=== PATIENT | male | born 1960 | race Caucasian/White ===

== ENCOUNTER → 2017-07-04 | Outpatient (CLI) | payer BC ==
--- NOTE | 2017-07-04 17:40 | MR ---
EXAMINATION TYPE: MR knee LT wo con DATE OF EXAM: 07/04/2017 COMPARISON: NONE HISTORY: Left Knee pain, x2 months TECHNIQUE: Multiplanar, multisequence imaging of the left knee is performed without IV contrast. FINDINGS: MEDIAL MENISCUS: There is a complex tear involving the posterior horn and body of the medial meniscus . LATERAL MENISCUS: Intrasubstance signal seen within the anterior and posterior horn of the lateral me niscus with no definite articular extension. Myxoid degeneration favored. CRUCIATE LIGAMENTS: The anterior and posterior cruciate ligaments are intact and unremarkable. COLLATERAL LIGAMENTS: The medial collateral ligament and lateral collateral ligament complex are inta ct and unremarkable. EXTENSOR MECHANISM: Visualized quadriceps and patellar tendons are intact. There are tiny less than 1 cm cystic areas along the lateral margin of the femur deep to the patellar retinaculum. May represen t small localized fluid within the space. Ganglion cyst felt less likely. EFFUSION: No significant suprapatellar joint effusion. POPLITEAL CYST: There is a 8 x 10 mm tiny popliteal fossa cyst with some adjacent fluid which may re present small ruptured component of the cyst. TRICOMPARTMENT SPACES: Mild narrowing of the medial compartment of the knee joint. No erosive change. CARTILAGE: There is grade 3 localized chondromalacia involving the medial femoral articular surface. BONE MARROW SIGNAL: There is an area of marrow edema measuring less than 1 cm involving the posterior medial femoral condyle. There is an additional area of marrow edema involving the medial tibial plat eau measuring 2 cm. These are likely related reactive related to the meniscal tear. There is an intraosseous lesion involving the proximal diaphysis of the femur which has mixed signal characteristics and corresponds the x-ray abnormality. Bone infarct favored over chondroid lesion and could be correlated with bone scan. IMPRESSION: 1. Complex tear posterior horn and body medial meniscus. 2. Osteoarthritis with areas of marrow edema or contusion involving the tibial plateau medially and m edial femoral condyle. 3. Intraosseous lesion most typical of bone infarct or chondroid lesion. Bone scan could help to diff erentiate. Bone infarct favored. 4. Probable tiny popliteal fossa cyst as discussed above.
== END | disposition home or self-care (01) ==
LOC: RADMRIMAIN 16:01
PROVIDERS: ATTEND Orthopaedic Surgery
DX: S83.232A Complex tear of medial meniscus, current injury, left knee, initial encounter (principal); M89.9 Disorder of bone, unspecified; M17.12 Unilateral primary osteoarthritis, left knee

== ENCOUNTER → 2017-08-04 | Outpatient (CLI) | payer BC ==
[2017-08-04 13:11] LABS: Potassium 4.7 mmol/L (3.5-5.1)
[2017-08-04 13:28] LABS: Basophils # (A) 0.1 k/uL (0-0.2); Basophils % (A) 2 %; Eosinophils # (A) 0.1 k/uL (0-0.7); Eosinophils % (A) 2 %; HCT 43.8 % (39.0-53.0); HGB 14.9 gm/dL (13.0-17.5); Lymphocytes # (A) 1.3 k/uL (1.0-4.8); Lymphocytes % (A) 31 %; MCH 29.4 pg (25.0-35.0); MCHC 33.9 g/dL (31.0-37.0); MCV 86.7 fL (80.0-100.0); Mean Platelet Volume 7.1; Monocytes # (A) 0.4 k/uL (0-1.0); Monocytes % (A) 10 %; Neutrophils # (A) 2.1 k/uL (1.3-7.7); Neutrophils % (A) 51 %; Platelet Count 326 k/uL (150-450); RBC 5.06 m/uL (4.30-5.90); RDW 12.4 % (11.5-15.5); WBC 4.1 k/uL (3.8-10.6)
== END | disposition home or self-care (01) ==
LOC: LABPAT 12:08 → LABWHC1 12:08
PROVIDERS: ATTEND Orthopaedic Surgery
DX: Z01.818 Encounter for other preprocedural examination (principal); I49.8 Other specified cardiac arrhythmias; M23.92 Unspecified internal derangement of left knee; Z01.812 Encounter for preprocedural laboratory examination
CPT/HCPCS: 36415; 80051; 85025; 93005

== ENCOUNTER 2017-08-19 06:43 | Day surgery (SDC) | payer BC ==
[2017-08-16 13:15] VITALS: BMI 27.2
--- NOTE | 2017-08-18 08:45 | HP ---
HISTORY AND PHYSICAL CHIEF COMPLAINT: Left knee pain. 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 He notes medial pain, stiffness, and swelling. He has intermittent giving way. He has tried anti-inflammatories and rest without much relief. He notes the knee bothers him daily. PAST MEDICAL HISTORY: Negative. PAST SURGICAL HISTORY: Significant for previous lumbar spine surgery. CURRENT MEDICATION: Ibuprofen. ALLERGIES: He denies drug allergies. FAMILY HISTORY: Significant for cancer. SOCIAL HISTORY: Significant for social alcohol use. REVIEW OF SYSTEMS: Sixteen point review of systems otherwise reviewed and is noncontributory. PHYSICAL EXAMINATION: On examination, the patient is approximately 5 feet 10 inches, 190 pounds of mesomorphic habitus. HEENT exam is nonfocal. Neck is supple. He has painless passive motion of his left hip. Straight leg raise is negative. Active motion left knee -8 to 135 degrees of flexion. He has a mild effusion. He is tender about the medial joint line. Collaterals are stable. Camron's negative. Smitha's elicits medial pain. His distal neurovascular exam appears to be intact in the left lower extremity. MRI report for the left knee 07/04/2017 shows a posterior medial meniscal tear along with chondral irregularities of the medial femoral condyle. IMPRESSION: Left knee internal derangement with symptomatic medial meniscal tear and possible medial femoral condyle chondral injury. RECOMMENDATIONS: I talked to the patient at length regarding his treatment options. At this point he is having significant pain and mechanical symptoms that limit him despite conservative measures. After thorough discussion, he opts to proceed with surgery. We will likely perform that as an outpatient procedure. We will likely proceed with arthroscopic evaluation with probable partial medial meniscectomy and possible medial femoral chondrectomy. MMODL / IJN: [id number] / [place]
[~2017-08-19 06:43] MED LIST: DEXAMETHASONE SOD PHOSPHATE 10 MG/ML 1 ML VIAL IV ONE; LACTATED RINGERS 1,000 ML IV SCH; MIDAZOLAM 2 MG/2 ML VIAL IV PRN; ONDANSETRON 4 MG/2 ML VIAL IVP ONE; SCOPOLAMINE 1.5MG/72HR PATCH TRANSDERM ONE; ceFAZolin IN SWFI 2 GM/20 ML SYRINGE IVP ONE; fentaNYL (PF) 50 MCG/ML 2 ML AMP IV PRN
[2017-08-19 07:13] VITALS: TEMP 97.8
[2017-08-19] MEDS ORDERED: MIDAZOLAM 2 MG/2 ML VIAL ONE (08:13)
[2017-08-19] MEDS ORDERED: KETOROLAC 30 MG/ML 1 ML VIAL ONE (08:13)
[2017-08-19] MEDS ORDERED: PROPOFOL 10 MG/ML 20 ML VIAL IV ONE (08:13)
[2017-08-19] MEDS ORDERED: PHENYLEPHRINE-0.9% NACL SYG 1 MG/10 ML SYRINGE ONE (08:13)
[2017-08-19] MEDS ORDERED: LIDOCAINE 1% INJ 10MG/ML (20 ML MDV) ONE (08:13)
[2017-08-19] MEDS ORDERED: fentaNYL (PF) 50 MCG/ML 2 ML AMP ONE (08:13)
[2017-08-19] MEDS ORDERED: EPINEPHrine (PF) 1 ML in SODIUM CHLORIDE 0.9% IRRIGATIO 3,000 ML IRRIGATION ONE ×6 (08:13)
--- NOTE | 2017-08-19 09:04 | P.OP ---
Date of Procedure: 08/19/17 Preoperative Diagnosis: Left knee internal derangement Postoperative Diagnosis: left knee posterior medial meniscal tear/grade 3 chondral injury distal lateral portion medial femoral condyle Procedure(s) Performed: Left knee arthroscopic partial medial meniscectomy/medial femoral chondrectomy/ microfracture medial femoral condyle Anesthesia: VIRGILIOA Surgeon: Shahab Lane Estimated Blood Loss (ml): 10 Pathology: none sent Condition: stable Disposition: PACU Indications for Procedure: The patient is a 57-year-old male who presents with progressive left knee pain and mechanical symptoms despite conservative measures. A discussion of the risks and benefits of continued conservative measures versus operative intervention was made with patient. He opted to proceed with surgery. Operative risks to include infection, neurovascular injury, development of blood clots, possible incomplete resolution of symptoms, possible worsening symptoms and need for subsequent procedures was discussed. Informed consent was obtained. Operative Findings: As below Description of Procedure: The patient was brought to the operating room, and after induction of general anesthesia examined the left knee. Collaterals were stable, Camron was negative, and posterior drawer was negative. The left lower extremity was prepped and draped in normal fashion. A superior lateral portal was made through a 3 mm skin incision superior and lateral to the patella. This was used for outflow. A lateral portal was made through a 5 mm vertical skin incision lateral to the patella tendon above the joint line. Diagnostic arthroscopy was performed. A medial portal was made through a similar incision medial to the patellar tendon above the joint line. On inspection of the medial compartment, a longitudinal tear involving the posterior one third of the medial meniscus in the white-white junction was noted. This debrided back to stable base with straight baskets and a motorized shaver. The edges were contoured. The remaining medial meniscus was stable and intact. A grade 3 chondral injury involving the distal lateral most portion of the medial femoral condyle was noted. There was a loose chondral flap debrided back to stable base with a motorized shaver. Microfracture was performed with an awl. I breeched the subchondral surface. On inspection of the notch, the anterior cruciate ligament appeared to be intact. On inspection of the lateral compartment, no significant meniscal or cartilage pathology was noted. On inspection the patellofemoral articulation, there is chondral fibrillation however no loose chondral fragments. The gutters were clear debris. The knee was then thoroughly irrigated. The portals were closed with Steri-Strips. A sterile dressing was applied in addition to a compression stocking. The patient was awoken from general anesthesia and transferred to recovery room in good condition. Blood loss was estimated at 10 mL. No complications were incurred.
[2017-08-19] MEDS ORDERED: LACTATED RINGERS 1,000 ML IV ONE (09:32)
[2017-08-19 09:46] VITALS: RESP 20
[2017-08-19 10:16] VITALS: BP 140/87; PULSE 73
== END 2017-08-19 10:45 | disposition home or self-care (01) ==
LOC: OR 06:43
PROVIDERS: ATTEND Orthopaedic Surgery
DX: M23.222 Derangement of posterior horn of medial meniscus due to old tear or injury, left knee (principal); M94.8X6 Other specified disorders of cartilage, lower leg; G47.33 Obstructive sleep apnea (adult) (pediatric); M54.9 Dorsalgia, unspecified; Z79.1 Long term (current) use of non-steroidal anti-inflammatories (NSAID)
CPT/HCPCS: 29881; 29879; J2250; J1100; J2405; J0171; J2001; J3010; J1885; J2370; J2704; J0690

== ENCOUNTER → 2018-09-08 | Outpatient (CLI) | payer BC ==
--- NOTE | 2018-09-08 22:08 | MR ---
EXAMINATION TYPE: MR knee RT wo con DATE OF EXAM: 09/08/2018 COMPARISON: HISTORY: Pain in right knee TECHNIQUE: Multiplanar, multisequence images of the knee is performed without IV contrast. FINDINGS: MEDIAL MENISCUS: Radial tear posterior horn medial meniscus. Myxoid degeneration. Anterior horn is in tact. LATERAL MENISCUS: Anterior and posterior horns are intact without tear. CRUCIATE LIGAMENTS: The anterior and posterior cruciate ligaments are intact and unremarkable. COLLATERAL LIGAMENTS: The medial collateral ligament and lateral collateral ligament complex are inta ct and unremarkable. EXTENSOR MECHANISM: Visualized quadriceps and patellar tendons are intact. EFFUSION: Small suprapatellar joint effusion noted. POPLITEAL CYST: No popliteal/ma cyst. TRICOMPARTMENT SPACES: Mild narrowing medial tibiofemoral joint space CARTILAGE: Intact BONE MARROW SIGNAL: No focal abnormal marrow signal is appreciated. OTHER: Soft tissue edema posterior compartment of the knee. IMPRESSION: 1.Radial tear posterior horn medial meniscus. Myxoid degeneration. 2. Joint effusion. 3. Soft tissue edema posterior compartment of the knee.
== END ==
LOC: RADMRIMAIN 19:34
PROVIDERS: ATTEND Orthopaedic Surgery
DX: S83.241A Other tear of medial meniscus, current injury, right knee, initial encounter (principal)

== ENCOUNTER → 2018-09-20 | Outpatient (CLI) | payer BC ==
[2018-09-20 17:27] LABS: Basophils # (A) 0.1 k/uL (0-0.2); Basophils % (A) 1 %; Eosinophils # (A) 0.1 k/uL (0-0.7); Eosinophils % (A) 1 %; HCT 41.2 % (39.0-53.0); HGB 14.2 gm/dL (13.0-17.5); Lymphocytes # (A) 1.4 k/uL (1.0-4.8); Lymphocytes % (A) 24 %; MCH 29.9 pg (25.0-35.0); MCHC 34.4 g/dL (31.0-37.0); MCV 86.7 fL (80.0-100.0); Mean Platelet Volume 7.1; Monocytes # (A) 0.4 k/uL (0-1.0); Monocytes % (A) 7 %; Neutrophils # (A) 3.7 k/uL (1.3-7.7); Neutrophils % (A) 64 %; Platelet Count 322 k/uL (150-450); RBC 4.75 m/uL (4.30-5.90); RDW 13.2 % (11.5-15.5); WBC 5.8 k/uL (3.8-10.6)
[2018-09-20 17:41] LABS: Potassium 4.2 mmol/L (3.5-5.1)
== END ==
LOC: LABPAT 15:57
PROVIDERS: ATTEND Orthopaedic Surgery
DX: Z01.818 Encounter for other preprocedural examination (principal); Z01.812 Encounter for preprocedural laboratory examination; M23.91 Unspecified internal derangement of right knee
CPT/HCPCS: 36415; 80051; 85025; 93005

== ENCOUNTER 2018-10-06 06:49 | Day surgery (SDC) | payer BC ==
[2018-10-03 11:24] VITALS: BMI 25.8
--- NOTE | 2018-10-05 11:13 | HP ---
HISTORY AND PHYSICAL CHIEF COMPLAINT: Right knee pain. 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 He notes posterior and lateral pain along with swelling and locking. It is worse with prolonged weightbearing activities and at night. Currently, he has been taking ibuprofen for this. PAST MEDICAL HISTORY: Significant for arthritis. PAST SURGICAL HISTORY: Significant for previous lumbar spine surgery and left knee arthroscopy. CURRENT MEDICATIONS: Ibuprofen. He denies drug allergies. FAMILY HISTORY: Significant for cancer. SOCIAL HISTORY: Significant for social alcohol use. REVIEW OF SYSTEMS: A 16-point review of systems otherwise reviewed and is noncontributory. PHYSICAL EXAMINATION: The patient is approximately 5 foot 10, 180 pounds of mesomorphic habitus. HEENT exam is nonfocal. Neck is supple. He has painless passive motion of the right hip. Straight leg raise is negative. Active motion right knee -10 to 100 degrees of flexion. He has mild effusion. He is tender about the medial, greater and lateral joint line. Collaterals are stable, Camron is negative, Smitha's elicits medial pain. His distal neurovascular appears to be intact in the right lower extremity. MRI report for the right knee from 09/08/2018 shows a posterior medial meniscal tear along with posterior soft tissue edema and a large effusion. There is some increased signal involving the ACL. IMPRESSION: Right knee internal derangement with symptomatic medial meniscal tear. RECOMMENDATIONS: I talked to the patient at length regarding his condition and treatment options. At this point, he is having significant pain and mechanical symptoms that limit his normal function and activities. After thorough discussion, he opts to proceed with surgery. We will plan to proceed with arthroscopic evaluation for probable partial medial meniscectomy. We will likely perform that as an outpatient procedure. Risks and benefits were discussed at length in layman's terms. MMODL / IJN: [id number] /
[~2018-10-06 06:49] MED LIST changes: +LIDOCAINE 1% 20 ML VIAL (10MG/ML) FOR IV START INTRADERMA PRN; -SCOPOLAMINE 1.5MG/72HR PATCH TRANSDERM ONE; -fentaNYL (PF) 50 MCG/ML 2 ML AMP IV PRN
[2018-10-06] MEDS ORDERED: LIDOCAINE 1% INJ 10MG/ML (20 ML MDV) ONE (07:55)
[2018-10-06] MEDS ORDERED: MIDAZOLAM 2 MG/2 ML VIAL ONE (07:55)
[2018-10-06] MEDS ORDERED: KETOROLAC 30 MG/ML 1 ML VIAL ONE (07:55)
[2018-10-06] MEDS ORDERED: fentaNYL (PF) 50 MCG/ML 2 ML AMP ONE (07:55)
[2018-10-06] MEDS ORDERED: PROPOFOL 10 MG/ML 20 ML VIAL IV ONE (07:55)
[2018-10-06] MEDS ORDERED: SUCCINYLCHOLINE CHLORIDE 100 MG/5 ML SYR IV ONE (07:55)
[2018-10-06] MEDS ORDERED: EPINEPHrine (PF) 1 ML in SODIUM CHLORIDE 0.9% IRRIGATIO 3,000 ML IRRIGATION ONE ×4 (08:02)
[2018-10-06] MEDS ORDERED: LACTATED RINGERS 1,000 ML IV ONE (08:35)
--- NOTE | 2018-10-06 08:55 | P.OP ---
Date of Procedure: 10/06/18 Preoperative Diagnosis: Right knee internal derangement Postoperative Diagnosis: Right knee posterior medial meniscal tear/grade 3 chondral injury distal lateral portion medial femoral condyle Procedure(s) Performed: Right knee arthroscopic partial medial meniscectomy/medial femoral chondrectomy/microfracture medial femoral condyle Anesthesia: VIRGILIOA Surgeon: Shahab Lane Estimated Blood Loss (ml): 10 Pathology: none sent Condition: stable Disposition: PACU Indications for Procedure: The patient's a 58-year-old male who presents with progressive right knee pain and mechanical symptoms despite conservative measures. A discussion of the risks and benefits of operative intervention versus continued conservative measures was made with the patient. He opted proceed with surgery. Operative risks to include infection, neurovascular injury, development of blood clots, possible incomplete resolution of symptoms, possible worsening symptoms and need for subsequent procedures was discussed. Informed consent was obtained. Operative Findings: As below Description of Procedure: The patient was brought to the operating room, and after induction of general anesthesia examined the right knee. Collaterals were stable, Camron was negative, and posterior drawer was negative. The right lower extremity was prepped and draped in a normal fashion. A superior lateral portal was made through a 3 mm skin incision superior and lateral to the patella. This was used for outflow. A lateral portal was made through a 5 mm vertical skin incision lateral to the patella tendon above the joint line. Diagnostic arthroscopy was performed. On inspection of the medial compartment, a complex tear involving the posterior horn of the medial meniscus was noted in the white-red junction. This was debrided back to stable base with straight baskets and a motorized shaver. A corresponding grade 3 chondral injury was noted involving the distal lateral portion of the medial femoral condyle. There was a loose chondral fragment debrided back to stable base with motorized shaver. Microfracture was performed with a chondral breeching the subchondral surface to the bone marrow elements. On inspection of the notch, the anterior cruciate ligament appeared to be intact. On inspection of the lateral compartment no significant meniscal or cartilage pathology was noted. On inspection of the patellofemoral articulation there were grade 2 chondral changes diffusely. The gutters were clear debris. The knee was then thoroughly irrigated. The portals were closed with Steri-Strips. A sterile dressing was applied in addition to a compression stocking. The patient was awoken from general anesthesia and transferred to recovery room in good condition. Blood loss was estimated at 10 mL. No complications were incurred.
[2018-10-06 09:08] VITALS: TEMP 97
[2018-10-06] MEDS: fentaNYL (PF) 50 MCG/ML 2 ML AMP IV PRN ×2 (09:12→09:29)
[2018-10-06 09:17] VITALS: RESP 16
[2018-10-06] MEDS ORDERED: HYDROcodone/APAP 5-325MG 1 EACH TAB PO ONE (10:09)
[2018-10-06 10:42] VITALS: BP 122/78; PULSE 88
== END 2018-10-06 11:11 | disposition home or self-care (01) ==
LOC: OR 06:49
PROVIDERS: ATTEND Orthopaedic Surgery
DX: S83.241A Other tear of medial meniscus, current injury, right knee, initial encounter (principal); S83.31XA Tear of articular cartilage of right knee, current, initial encounter; X58.XXXA Exposure to other specified factors, initial encounter; M19.90 Unspecified osteoarthritis, unspecified site; Z79.1 Long term (current) use of non-steroidal anti-inflammatories (NSAID)
CPT/HCPCS: 29881; 29879; J2250; J2405; J0171; J2001; J3010; J1885; J0330; J2704; J0690

== ENCOUNTER 2021-03-21 14:49 | Emergency (ER) | payer BC ==
[2021-03-21 15:14] VITALS: TEMP 98.3
[2021-03-21] MEDS ORDERED: ONDANSETRON 4 MG/2 ML VIAL IVP STA (16:04)
[2021-03-21] MEDS ORDERED: SODIUM CHLORIDE 0.9% 1,000 ML IV STA (16:04)
[2021-03-21] MEDS ORDERED: HYDROmorphone 0.5 MG/0.5 ML SYRINGE IVP STA ×2 (16:04→17:20)
[2021-03-21] MEDS ORDERED: KETOROLAC 15 MG/ML 1 ML VIAL IVP STA (16:04)
--- NOTE | 2021-03-21 16:07 | ED ---
General Adult HPI - General Chief complaint: Back Pain/Injury Stated complaint: SOB & back pain Time Seen by Provider: 03/21/21 15:56 Source: patient Mode of arrival: ambulatory Limitations: no limitations - History of Present Illness Initial comments: 61-year-old male patient presents to the emergency department today for evaluation of right flank pain. Patient states the pain started approximately an hour ago. States this started in the right flank as a sharp stabbing pain and now has radiated around to his right upper quadrant abdomen. Reports increased pain with deep breathing. Denies nausea or vomiting. Denies any hematuria, dysuria, urinary frequency, urinary urgency. Denies any knowledge of aortic aneurysm. States he has no other medical problems. Is otherwise healthy. Patient denies any recent rash, fever, chills, cough, shortness of breath, chest pain, diarrhea, constipation, numbness, tingling, dizziness, weakness, hematuria, dysuria, urinary urgency, urinary frequency, headache, visual changes, or any other complaints. Denies history of abdominal surgery. - Related Data Home Medications Medication Instructions Recorded Confirmed Ibuprofen 800 mg PO DAILY PRN 08/16/17 10/06/18 Previous Rx's Medication Instructions Recorded Hydrocodone/Acetaminophen [[place] 1 each PO Q6HR PRN #21 tab 10/06/18 5-325] HYDROcodone/APAP 5-325MG [[place] 5] 1 each PO Q6HR PRN #12 tab 03/21/21 Ibuprofen [Motrin] 600 mg PO Q8HR PRN #30 tab 03/21/21 Tamsulosin HCl [Flomax] 0.4 mg PO DAILY #7 cap 03/21/21 Allergies Allergy/AdvReac Type Severity Reaction Status Date / Time No Known Allergies Allergy Verified 03/21/21 15:11 Review of Systems ROS Statement: Those systems with pertinent positive or pertinent negative responses have been documented in the HPI. ROS Other: All systems not noted in ROS Statement are negative. Past Medical History Past Medical History: No Reported History History of Any Multi-Drug Resistant Organisms: None Reported Past Surgical History: Orthopedic Surgery Past Psychological History: No Psychological Hx Reported Smoking Status: Never smoker Past Alcohol Use History: Occasional Past Drug Use History: None Reported General Exam Limitations: no limitations General appearance: alert, in no apparent distress, other (This is a well- developed, well-nourished adult male patient in no acute distress.) Respiratory exam: Present: normal lung sounds bilaterally. Absent: respiratory distress, wheezes, rales, rhonchi, stridor Cardiovascular Exam: Present: regular rate, normal rhythm, normal heart sounds. Absent: systolic murmur, diastolic murmur, rubs, gallop, clicks GI/Abdominal exam: Present: soft, tenderness (Right upper quadrant), normal bowel sounds. Absent: distended, guarding, rebound, rigid Back exam: Present: normal inspection, CVA tenderness (R). Absent: CVA tenderness (L) Neurological exam: Present: alert, oriented X3, CN II-XII intact Psychiatric exam: Present: normal affect, normal mood Skin exam: Present: warm, dry, intact, normal color. Absent: rash Course Vital Signs 03/21/21 03/21/21 15:11 17:18 Temperature 98.3 F Pulse Rate 77 76 Respiratory 20 18 Rate Blood Pressure 147/88 141/87 O2 Sat by Pulse 96 98 Oximetry Medical Decision Making - Medical Decision Making 61-year-old male patient presents to the emergency department today for claritza luation of right flank pain that started suddenly prior to arrival. Physical examination did reveal right CVA tenderness. Right upper quadrant tenderness. Labs reviewed and are unremarkable. Urinalysis unremarkable. CT abdomen and pelvis did reveal mild right-sided hydronephrosis with a small calculus at the right UVJ. I did discuss findings results with him to be discharged home with medications for symptom relief. He is instructed to follow-up with urology if symptoms are not improved over the next 1-2 days. Return parameters were discussed in detail. He verbalizes understanding and agrees with this plan. Case discussed with my attending Dr. Chan. - Lab Data Result diagrams: 03/21/21 16:29 03/21/21 16:29 Lab Results 03/21/21 03/21/21 03/21/21 Range/Units 16:29 16:29 16:29 WBC 8.9 (3.8-10.6) k/uL RBC 5.09 (4.30-5.90) m/uL Hgb 15.5 (13.0-17.5) gm/dL Hct 46.2 (39.0-53.0) % MCV 90.8 (80.0-100.0) fL MCH 30.5 (25.0-35.0) pg MCHC 33.6 (31.0-37.0) g/dL RDW 12.4 (11.5-15.5) % Plt Count 325 (150-450) k/uL MPV 7.1 Neutrophils % 84 % Lymphocytes % 7 % Monocytes % 7 % Eosinophils % 1 % Basophils % 0 % Neutrophils # 7.4 (1.3-7.7) k/uL Lymphocytes # 0.7 L (1.0-4.8) k/uL Monocytes # 0.6 (0-1.0) k/uL Eosinophils # 0.0 (0-0.7) k/uL Basophils # 0.0 (0-0.2) k/uL Sodium 137 (137-145) mmol/L Potassium 4.5 (3.5-5.1) mmol/L Chloride 99 (98-107) mmol/L Carbon Dioxide 27 (22-30) mmol/L Anion Gap 11 mmol/L BUN 16 (9-20) mg/dL Creatinine 0.96 (0.66-1.25) mg/dL Est GFR (CKD-EPI)AfAm >90 (>60 ml/min/1.73 sqM) Est GFR (CKD-EPI)NonAf 86 (>60 ml/min/1.73 sqM) Glucose 144 H (74-99) mg/dL Plasma Lactic Acid Js 1.8 (0.7-2.0) mmol/L Calcium 9.8 (8.4-10.2) mg/dL Total Bilirubin 0.9 (0.2-1.3) mg/dL AST 20 (17-59) U/L ALT 22 (4-49) U/L Alkaline Phosphatase 55 (38-126) U/L Total Protein 8.2 (6.3-8.2) g/dL Albumin 4.7 (3.5-5.0) g/dL Lipase 112 (23-300) U/L Urine Color Urine Appearance (Clear) Urine pH (5.0-8.0) Ur Specific Otho (1.001-1.035) Urine Protein (Negative) Urine Glucose (UA) (Negative) Urine Ketones (Negative) Urine Blood (Negative) Urine Nitrite (Negative) Urine Bilirubin (Negative) Urine Urobilinogen (<2.0) mg/dL Ur Leukocyte Esterase (Negative) Urine RBC (0-5) /hpf Urine WBC (0-5) /hpf Amorphous Sediment (None) /hpf Urine Mucus (None) /hpf 03/21/21 Range/Units 17:13 WBC (3.8-10.6) k/uL RBC (4.30-5.90) m/uL Hgb (13.0-17.5) gm/dL Hct (39.0-53.0) % MCV (80.0-100.0) fL MCH (25.0-35.0) pg MCHC (31.0-37.0) g/dL RDW (11.5-15.5) % Plt Count (150-450) k/uL MPV Neutrophils % % Lymphocytes % % Monocytes % % Eosinophils % % Basophils % % Neutrophils # (1.3-7.7) k/uL Lymphocytes # (1.0-4.8) k/uL Monocytes # (0-1.0) k/uL Eosinophils # (0-0.7) k/uL Basophils # (0-0.2) k/uL Sodium (137-145) mmol/L Potassium (3.5-5.1) mmol/L Chloride (98-107) mmol/L Carbon Dioxide (22-30) mmol/L Anion Gap mmol/L BUN (9-20) mg/dL Creatinine (0.66-1.25) mg/dL Est GFR (CKD-EPI)AfAm (>60 ml/min/1.73 sqM) Est GFR (CKD-EPI)NonAf (>60 ml/min/1.73 sqM) Glucose (74-99) mg/dL Plasma Lactic Acid Js (0.7-2.0) mmol/L Calcium (8.4-10.2) mg/dL Total Bilirubin (0.2-1.3) mg/dL AST (17-59) U/L ALT (4-49) U/L Alkaline Phosphatase (38-126) U/L Total Protein (6.3-8.2) g/dL Albumin (3.5-5.0) g/dL Lipase (23-300) U/L Urine Color Yellow Urine Appearance Turbid (Clear) Urine pH 7.0 (5.0-8.0) Ur Specific Otho 1.022 (1.001-1.035) Urine Protein Negative (Negative) Urine Glucose (UA) Negative (Negative) Urine Ketones Negative (Negative) Urine Blood Negative (Negative) Urine Nitrite Negative (Negative) Urine Bilirubin Negative (Negative) Urine Urobilinogen <2.0 (<2.0) mg/dL Ur Leukocyte Esterase Negative (Negative) Urine RBC <1 (0-5) /hpf Urine WBC 4 (0-5) /hpf Amorphous Sediment Many H (None) /hpf Urine Mucus Rare H (None) /hpf - Radiology Data Radiology results: report reviewed, image reviewed CT abdomen and pelvis without contrast was obtained. Report is reviewed in its entirety. Impression by Dr. Morrell shows mild shortly calculus at the right ureterovesical junction. Mild right-sided hydronephrosis and hydroureter. Disposition Clinical Impression: Kidney stone Disposition: HOME SELF-CARE Condition: Good Instructions (If sedation given, give patient instructions): Kidney Stones (ED) Additional Instructions: Take medications as directed. Increase fluids. Follow-up with urologist for further evaluation as soon as possible. Return for any new, worsening, or concerning symptoms. Prescriptions: Tamsulosin HCl [Flomax] 0.4 mg PO DAILY #7 cap Ibuprofen [Motrin] 600 mg PO Q8HR PRN #30 tab PRN Reason: Pain HYDROcodone/APAP 5-325MG [[place] 5] 1 each PO Q6HR PRN #12 tab PRN Reason: Pain Is patient prescribed a controlled substance at d/c from ED?: No Referrals: Wei Echols MD [Primary Care Provider] - 1-2 days Thomas Pritchett MD [STAFF PHYSICIAN] - 1-2 days Time of Disposition: 17:53
[2021-03-21 16:34] LABS: Basophils % (A) 0 %; Eosinophils % (A) 1 %; HCT 46.2 % (39.0-53.0); HGB 15.5 gm/dL (13.0-17.5); Lymphocytes # (A) 0.7 k/uL (1.0-4.8); Lymphocytes % (A) 7 %; MCH 30.5 pg (25.0-35.0); MCHC 33.6 g/dL (31.0-37.0); MCV 90.8 fL (80.0-100.0); Mean Platelet Volume 7.1; Monocytes # (A) 0.6 k/uL (0-1.0); Monocytes % (A) 7 %; Neutrophils # (A) 7.4 k/uL (1.3-7.7); Neutrophils % (A) 84 %; Platelet Count 325 k/uL (150-450); RBC 5.09 m/uL (4.30-5.90); RDW 12.4 % (11.5-15.5); WBC 8.9 k/uL (3.8-10.6)
[2021-03-21 16:53] LABS: Chloride 99 mmol/L (98-107)
[2021-03-21 16:56] LABS: ALT 22 U/L (4-49); AST 20 U/L (17-59); African American GFR (CKD) >90 (>60 ml/min/1.73 sqM); Albumin 4.7 g/dL (3.5-5.0); Alkaline Phosphatase 55 U/L (38-126); Anion Gap 11 mmol/L; Blood Urea Nitrogen 16 mg/dL (9-20); Calcium 9.8 mg/dL (8.4-10.2); Carbon Dioxide 27 mmol/L (22-30); Glucose 144 mg/dL (74-99); Lipase 112 U/L (23-300); Non-African American GFR(CKD) 86 (>60 ml/min/1.73 sqM); Potassium 4.5 mmol/L (3.5-5.1); Sodium 137 mmol/L (137-145); Total Bilirubin 0.9 mg/dL (0.2-1.3); Total Protein 8.2 g/dL (6.3-8.2)
--- NOTE | 2021-03-21 17:02 | CT ---
EXAMINATION TYPE: CT abdomen pelvis wo con DATE OF EXAM: 03/21/2021 COMPARISON: None HISTORY: right flank pain CT DLP: 485.7 mGycm Automated exposure control for dose reduction was used. Images obtained from the diaphragm to the floor the pelvis without contrast. Lung bases are clear of infiltrate. There is no pleural effusion. Heart size is fairly normal. There is no pericardial effusion. Liver spleen stomach pancreas gallbladder appear intact. Bile ducts are not dilated. There is no adrenal mass. Kidneys have normal size. There is right-sided hydronephrosis and hydrouret er. There is 4 mm calculus at the right ureterovesical junction. There is mild right-sided perinephri c edema. There is no retroperitoneal adenopathy. There is no mesenteric edema. There is no ascites or free air. There is no bowel obstruction. Appendi x not seen. Lumbar vertebra have normal alignment. There is degenerative disc space narrowing at L4-5 and L5-S1. There is vacuum disc. There is spur formation. Facet joints are intact. The bony pelvis appears intac t. Hip joints are intact. IMPRESSION: Small obstructing calculus at the right ureterovesical junction. Mild right-sided hydronephrosis and hydroureter.
[2021-03-21 17:20] VITALS: RESP 18
[2021-03-21 17:31] LABS: Amorphous Sediment,Urine Many /hpf; Appearance,Urine Turbid (Clear); Bilirubin,Urine Negative (Negative); Blood,Urine Negative (Negative); Color,Urine Yellow; Glucose,Urine (UA) Negative (Negative); Ketones,Urine Negative (Negative); Leukocyte Esterase,Urine Negative (Negative); Mucus,Urine Rare /hpf; Nitrite,Urine Negative (Negative); Protein,Urine Negative (Negative); RBC,Urine <1 /hpf (0-5); Specific Gravity,Urine 1.022 (1.001-1.035); Urobilinogen,Urine <2.0 mg/dL (<2.0); WBC,Urine 4 /hpf (0-5)
[2021-03-21] MEDS ORDERED: TAMSULOSIN 0.4 MG CAP.ER.24H PO STA (17:50)
[2021-03-21 18:06] VITALS: BP 155/80; PULSE 107
== END 2021-03-21 18:06 | disposition home or self-care (01) ==
LOC: EC 14:49
DX: N20.0 Calculus of kidney (principal)
CPT/HCPCS: 99284; 96374; 96375 ×2; 96376; 96361; 36415; 80053; 83605; 83690; 85025; 81001; 74176; J2405; J1885; J1170

== ENCOUNTER → 2021-10-26 | Outpatient (CLI) | payer BC ==
--- NOTE | 2021-10-27 01:04 | CT ---
EXAMINATION TYPE: CT lumbar spine wo con DATE OF EXAM: 10/26/2021 5:52 PM COMPARISON: CT dated 03/21/2021 HISTORY: low back pain. Hx of [address] DLP: 944 mGycm Automated exposure control for dose reduction was used. Technique: Unenhanced CT of the lumbar spine was performed. Bone and soft tissue window settings are submitted as well as coronal and sagittal reconstructions. FINDINGS: Transitional lumbosacral vertebra which would be considered as a sacralized L5 in this report. Precis e counting of the lumbar vertebrae can be achieved after a complementary exam of the thoracic spine. No definitive vertebral body collapse or acute displaced fracture. Severe degenerative changes at L3- 4 and L4-5 level with severe disc degeneration, subchondral sclerotic changes and opposing endplate l eukocytosis. L1-L2: Mild diffuse posterior disc bulge, without significant central spinal canal stenosis or neurof oraminal stenosis. L2-L3: Mild diffuse posterior disc bulge with focal foraminal protrusions, slightly more on the right side, associated with a prominent posterior epidural fat, causing mild central spinal canal stenosis and mild bilateral neuroforaminal stenosis. L3-L4: Large diffuse posterior disc bulge with vacuum phenomenon, disc degeneration and large posteri or disc extrusion, associated with bilateral facet arthropathy and ligamentum flavum hypertrophy, cau sing severe central spinal canal stenosis and mild bilateral neuroforaminal stenosis. L4-L5: Markedly degenerative disc with minimal retrolisthesis, posterior osteophytosis and bilateral facet osteoarthropathy, causing mild central spinal canal stenosis and severe bilateral neuroforamina l stenosis, more on the right side. L5-S1: Rudimentary disc without significant central spinal canal stenosis or neuroforaminal stenosis. Scattered arterial atherosclerotic calcifications. No paraspinal lesion. IMPRESSION: Transitional lumbosacral vertebra as described above. Marked degenerative changes at L3-4 and L4-5 le vels with significant DDD causing severe central spinal canal stenosis at L3-4 level and severe bilat eral neural foramina stenosis at L4-5 level as detailed above. Recommend clinical correlation and cor relation with MRI results.
--- NOTE | 2021-10-27 06:00 | MR ---
EXAMINATION TYPE: MR lumbar spine wo con DATE OF EXAM: 10/26/2021 COMPARISON: None HISTORY: Lower back pain with sciatiac issues x20 years Multiplanar multiecho imaging of the lumbar spine with no contrast. The vertebra have normal alignment. There is moderate narrowing of the disc spaces at L4-5 and L5-S1. There is rudimentary disc at S1-S2. There is posterior disc herniation in the midline into the left side at the L4-5 level. There is resultant moderately severe spinal stenosis. No compression fracture . No focal bone destruction. There is some narrowing of the right side L5-S1 neural foramen due to di sc space narrowing and facet arthropathy. There is similar less severe narrowing on the left side at L5-S1. There is no lumbar paraspinal mass. The visualized sacroiliac joints are intact. IMPRESSION: Posterior disc herniation at L4-5 in the midline and to the left side with moderate spinal stenosis. Neural foraminal stenosis at L5-S1 related to disc space narrowing and facet arthropathy. No fracture seen.
== END | disposition home or self-care (01) ==
LOC: RADMRIMAIN 16:34
PROVIDERS: ATTEND Neurological Surgery
DX: M48.061 Spinal stenosis, lumbar region without neurogenic claudication (principal); M47.816 Spondylosis without myelopathy or radiculopathy, lumbar region; M51.36 Other intervertebral disc degeneration, lumbar region; M51.26 Other intervertebral disc displacement, lumbar region
CPT/HCPCS: 72131; 72148